=== PATIENT | female | born 1960 | race American Indian/Alaskan Native ===

== ENCOUNTER 2016-12-16 10:12 | Outpatient (CLI) | payer OTHER ==
--- NOTE | 2016-12-16 10:48 | Mammography Report ---
BILATERAL MAMMOGRAM: FINDINGS: The breast tissue is heterogeneously dense, which could obscure detection of small masses (approximately 50%-75% glandular). No mass, distortion, suspicious calcification, or skin change is seen. No significant changes when compared to prior examination in November 2015. CAD was utilized. IMPRESSION: Negative mammogram. There is no mammographic evidence of malignancy. RECOMMENDATION: Follow-up per ACS guidelines. BI-RADS CATEGORY: 1 = Negative ACR BI-RADS MAMMOGRAPHIC CODES: 0 = Needs additional imaging evaluation; 1 = Negative; 2 = Benign; 3 = Probably benign; 4 = Suspicious; 5 = Malignant; 6 = Known biopsy-proven malignancy COMMENT: 1. Dense breast tissue, i.e., adenosis, fibrocystic changes, etc., may obscure an underlying neoplasm. 2. Approximately 10% of cancers are not detected with mammography. 3. A negative mammography report should not delay biopsy if a clinically suspicious mass is present. COMMENT: Patient follow-up letters are generated in [employer].
== END 2016-12-16 10:13 | disposition home or self-care (01) ==
LOC: SPVWC 10:12
DX: Z12.31 Encounter for screening mammogram for malignant neoplasm of breast (principal)
CPT/HCPCS: 77067; G0202

== ENCOUNTER 2018-01-10 09:30 | Outpatient (CLI) | payer OTHER ==
--- NOTE | 2018-01-10 16:39 | Mammography Report ---
BILATERAL DIGITAL SCREENING MAMMOGRAM with CAD : 01/10/18 09:30:00 CLINICAL: Routine screening. COMPARISON:12/16/16 FINDINGS: The breasts are heterogeneously dense, which may obscure small masses. No mass, architectural distortion or suspicious calcifications. IMPRESSION: No mammographic evidence of malignancy. BI-RADS CATEGORY: 2 -- Benign RECOMMENDATION: Routine mammographic screening in one year. COMMENT: Patient follow-up letters are generated by our [employer] application.
== END 2018-01-10 09:31 | disposition home or self-care (01) ==
LOC: MAMMO 09:30 → EDSTATUS 10:00
DX: Z12.31 Encounter for screening mammogram for malignant neoplasm of breast (principal)
CPT/HCPCS: 77067

== ENCOUNTER 2019-02-06 11:10 | Outpatient (CLI) | payer OTHER ==
--- NOTE | 2019-02-07 14:11 | Mammography Report ---
DIGITAL SCREENING MAMMOGRAM WITH CAD, 02/06/2019 INDICATION: Routine screening mammography. TECHNIQUE: Digital bilateral 2D mammography was obtained in the craniocaudal and mediolateral obliq ue projections. This examination was interpreted with the benefit of Computer-Aided Detection analysi s. COMPARISON: 01/10/2018, 12/16/2016, 12/16/2015 and 12/13/2013 FINDINGS: Breast Density: The breasts are heterogeneously dense, which may obscure small masses. There is no evidence of dominant mass, suspicious calcifications or architectural distortion in eithe r breast. IMPRESSION: No mammographic evidence of malignancy. Follow up recommendation: Routine yearly BI-RADS Category 2: Benign. A "normal" or negative report should not discourage follow up or biopsy of a clinically significant f inding. A written summary of these findings will be mailed to the patient. The patient will be entered into a mammography reporting system which will generate a reminder letter for the patient's next appointmen t at the appropriate interval. The [employer] recommends yearly mammograms starting at age 40 and continuing as l kraig as a woman is in good health. Breast MRI is recommended for women with an approximate 20-25% or greater lifetime risk of breast cancer, including women with a strong family history of breast or ova erinn cancer or who have been treated for Hodgkin's disease. Signer Name: Yordan Limon MD Signed: 02/07/2019 2:06 PM Workstation Name: [id number]
== END 2019-02-06 11:11 | disposition home or self-care (01) ==
LOC: SPVWC 11:10
DX: Z12.31 Encounter for screening mammogram for malignant neoplasm of breast (principal)
CPT/HCPCS: 77067

== ENCOUNTER 2019-03-08 10:34 | Outpatient (CLI) | payer OTHER ==
--- NOTE | 2019-03-08 11:26 | Cat Scan Report ---
CT ABDOMEN AND PELVIS WITHOUT CONTRAST INDICATION / CLINICAL INFORMATION: N20.0 CALCULUS OF KIDNEY. TECHNIQUE: Axial CT images were obtained through the abdomen and pelvis without IV contrast. All CT scans at our [facility] location are performed using CT dose reduction for ALARA by means of automated exposure control. COMPARISON: None available. FINDINGS: LOWER CHEST: No significant abnormality. LIVER: No significant abnormality. GALLBLADDER: No significant abnormality. BILE DUCTS: No significant abnormality. PANCREAS: No significant abnormality. SPLEEN: No significant abnormality. ADRENALS: No significant abnormality. RIGHT KIDNEY and URETER: Minimal right hydronephrosis secondary to a 4 mm stone within the proximal r ight ureter.. LEFT KIDNEY and URETER: Nonobstructive nephrolithiasis. STOMACH and SMALL BOWEL: No significant abnormality. COLON: No significant abnormality. APPENDIX: No significant abnormality. PERITONEUM: No free fluid. No free air. No fluid collection. LYMPH NODES: No significant adenopathy. AORTA and ARTERIES: No significant abnormality. IVC and VEINS: No significant abnormality. URINARY BLADDER: No significant abnormality. REPRODUCTIVE ORGANS: No significant abnormality. ADDITIONAL FINDINGS: None. SKELETAL SYSTEM: No significant abnormality. IMPRESSION: 4 mm calculus identified within the proximal right ureter causing minimal right hydroureteronephrosis . Signer Name: Erasmo Wolf MD Signed: 03/08/2019 11:22 AM Workstation Name: [id number]
== END 2019-03-08 10:35 | disposition home or self-care (01) ==
LOC: CT 10:34
PROVIDERS: ATTEND Urology
DX: N13.2 Hydronephrosis with renal and ureteral calculous obstruction (principal)
CPT/HCPCS: 74176